=== PATIENT | female | born 1965 | race Caucasian/White ===

== ENCOUNTER 2021-01-01 13:32 | Emergency (ER) | payer SELFPAY ==
[~2021-01-01] VITALS: Ht 160 cm; Wt 107.0 kg
[2021-01-01 13:43] VITALS: BP 169/85
[2021-01-01] MEDS ORDERED: HYDROCODONE/ACETAMINOPHEN 5/325MG TABLET PO ONE (16:30)
[2021-01-01] MEDS ORDERED: IBUP-2029 MT (16:52)
[2021-01-01] MEDS ORDERED: HYDR-4001 MT (16:52)
== END 2021-01-01 17:18 | disposition home or self-care (01) ==
LOC: ER 13:32
DX: S52.121A Displaced fracture of head of right radius, initial encounter for closed fracture (principal); R03.0 Elevated blood-pressure reading, without diagnosis of hypertension; W01.0XXA Fall on same level from slipping, tripping and stumbling without subsequent striking against object, initial encounter; Y93.89 Activity, other specified; Y92.89 Other specified places as the place of occurrence of the external cause
CPT/HCPCS: 29105; 73080; 73090; 81025; 99284

== ENCOUNTER 2023-04-22 11:58 | Emergency (ER) | payer OTHER, MEDICAID ==
[~2023-04-22] VITALS: Ht 167.6 cm; Wt 82.0 kg
[~2023-04-22 11:58] MED LIST: HYDR-4001 MT; IBUP-2029 MT
[2023-04-22] MEDS ORDERED: IBUPROFEN 800MG TABLET PO ONE (15:45)
[2023-04-22 15:59] VITALS: BP 157/69
[2023-04-22] MEDS ORDERED: IBUPROFEN 400MG TABLET PO NR (16:00)
[2023-04-22] MEDS ORDERED: IBUP-2030 MT (16:22)
[2023-04-22 16:37] VITALS: PULSE 104; RESP 16; TEMP 98.4
== END 2023-04-22 16:48 | disposition home or self-care (01) ==
LOC: ER 11:58
DX: M79.671 Pain in right foot (principal)
CPT/HCPCS: 93971; 73610; 73630; 99284; Z7610